=== PATIENT | male | born 1985 | race Caucasian/White ===

== ENCOUNTER 2017-12-27 01:12 | Emergency (ER) | payer SELFPAY ==
[~2017-12-27] VITALS: Ht 177.8 cm; Wt 68.0 kg
[2017-12-27 01:30] VITALS: Ht 177.8 cm; Wt 68.0 kg
[2017-12-27 02:53] VITALS: BP 118/67
== END 2017-12-27 02:53 | disposition home or self-care (01) ==
LOC: ED 01:12
DX: S96.912A Strain of unspecified muscle and tendon at ankle and foot level, left foot, initial encounter (principal); W51.XXXA Accidental striking against or bumped into by another person, initial encounter; Y93.89 Activity, other specified; Y92.89 Other specified places as the place of occurrence of the external cause; Y99.8 Other external cause status